=== PATIENT | male | born 1980 | race Caucasian/White ===

== ENCOUNTER 2016-12-27 13:48 | Emergency (ER) | payer MEDICAID ==
[2016-12-27 13:56] VITALS: RESP 16; TEMP 97.7
--- NOTE | 2016-12-27 14:44 | EDPHY ---
H & P Time Seen by Provider: 12/27/16 14:27 HPI/ROS: CHIEF COMPLAINT: Rectal bleeding for 1 year HISTORY OF PRESENT ILLNESS: This 36-year-old man describes that he "had 2 stents placed" in his "rectum in [place]" for surgery for diverticulitis approximately 8 years ago. Over the past year he has had intermittent red blood from the rectal area, last was yesterday. Symptoms are mild. Not associated with abdominal pain or bleeding anywhere else. No nausea vomiting or diarrhea. REVIEW OF SYSTEMS: Eye: no change in vision ENT: no sore throat Cardiac: no chest pain or syncope Pulmonary: no cough or SOB Abdomen: HPI Musculoskeletal: no back pain Skin: no rash Neuro: no headache Constitutional: no fever : no urinary symptoms A comprehensive 10 point review of systems is otherwise negative aside from elements mentioned in the history of present illness. PAST MEDICAL HISTORY: As in HPI. Also right shoulder surgery. Social history: Currently homeless General Appearance: Alert and conversant, cooperative. Eyes: No scleral icterus. ENT, Mouth: Normal mucous membranes. Respiratory: Normal respiratory effort, breath sounds equal, lungs are clear to auscultation. Cardiovascular: Regular rate and rhythm. Gastrointestinal: Abdomen is soft and non tender. Rectal exam shows would appear to be 2 sinus tracts lateral to the rectum. No hemorrhoids seen. Anoscopy is normal with brown stool sent to lab for Hemoccult. Neurological: Alert and oriented x3. Normally conversant. Face symmetric, normal movement and sensation in all extremities. Skin: Warm and dry, no rashes. Musculoskeletal: No peripheral edema and no joint swelling. Psychiatric: Not agitated. Emergency Department course/MDM: CBC and fecal occult blood. Surgical referral, CBC and hemoglobin and hematocrit are normal. Case management to facilitate surgical follow-up. I think it is unlikely that he has actively bleeding hemorrhoid, upper or lower GI bleed, rectal infection, colitis. Smoking Status: Unknown if ever smoked Constitutional: Initial Vital Signs Temperature (C) 36.5 C 12/27/16 13:52 Heart Rate 105 H 12/27/16 13:52 Respiratory Rate 16 12/27/16 13:52 Blood Pressure 131/90 H 12/27/16 13:52 O2 Sat (%) 98 12/27/16 13:52 O2 Delivery Mode Room Air Allergies/Adverse Reactions: No Known Allergies Allergy (Unverified 05/25/13 10:36) Home Medications: Medication Instructions Recorded Cephalexin [Keflex (RX)] 500 mg PO Q6H #28 cap 05/25/13 Miscellaneous Medical Supply [NO 1 ea MIS AD 05/25/13 HOME MEDS] SULFAMETHOXAZOLE/TRIMETHOPRIM 1 each PO BID #14 tab 05/25/13 [BACTRIM DS TABLET] Medical Decision Making - Data Points Laboratory Results: Laboratory Results 12/27/16 14:40 12/27/16 12/27/16 14:40 14:37 WBC 7.78 10^3/uL 10^3/uL (3.80-9.50) RBC 4.55 10^6/uL 10^6/uL (4.40-6.38) Hgb 15.1 g/dL g/dL (13.7-17.5) Hct 43.2 % % (40.0-51.0) MCV 94.9 fL fL (81.5-99.8) MCH 33.2 pg pg (27.9-34.1) MCHC 35.0 g/dL g/dL (32.4-36.7) RDW 12.2 % % (11.5-15.2) Plt Count 294 10^3/uL 10^3/uL (150-400) MPV 10.5 fL fL (8.7-11.7) Neut % (Auto) 65.3 % % (39.3-74.2) Lymph % (Auto) 25.6 % % (15.0-45.0) Terry % (Auto) 6.6 % % (4.5-13.0) Eos % (Auto) 1.9 % % (0.6-7.6) Baso % (Auto) 0.3 % % (0.3-1.7) Nucleat RBC Rel Count 0.0 % % (0.0-0.2) Absolute Neuts (auto) 5.09 10^3/uL 10^3/uL (1.70-6.50) Absolute Lymphs (auto) 1.99 10^3/uL 10^3/uL (1.00-3.00) Absolute Monos (auto) 0.51 10^3/uL 10^3/uL (0.30-0.80) Absolute Eos (auto) 0.15 10^3/uL 10^3/uL (0.03-0.40) Absolute Basos (auto) 0.02 10^3/uL 10^3/uL (0.02-0.10) Absolute Nucleated RBC 0.00 10^3/uL 10^3/uL (0-0.01) Immature Gran % 0.3 % % (0.0-1.1) Immature Gran # 0.02 10^3/uL 10^3/uL (0.00-0.10) Stool Occult Bld Scrn NEGATIVE (NEGATIVE) Departure - Departure Disposition: Home, Routine, Self-Care Clinical Impression: Rectal bleeding Condition: Good Instructions: Rectal Bleeding (ED) Additional Instructions: You have a follow-up appointment at [facility] tomorrow Saturday12/28/16 with a 10:45 a.m. check-in. [facility] address is [address] [place] [address] and their phone number is . You have a follow-up appointment with Dr. Franchesca Valdez on Saturday01/08/17 with a 12:45p.m. check-in time. Dr. Franchesca Valdez's office is located on [facility] but in the [facility] at [address] [place] [address], [address] Dr. Franchesca Valdez's office number is [phone]. Please call them if you need to cancel or reschedule this appointment. Referrals: Franchesca Valdez MD [Medical Doctor] - As per Instructions (Your referred to the surgeon for follow-up for your rectal issue.) [facility],. [Clinic] - As per Instructions
[2016-12-27 14:53] LABS: % IMMATURE GRANULYOCYTES 0.3 % (0.0-1.1); ABSOLUTE IMMATURE GRANULOCYTES 0.02 10^3/uL (0.00-0.10); ADD DIFF? NO; ADD MORPH? NO; ADD SCAN? NO; ATYPICAL LYMPHOCYTE FLAG 30 (0-99); FRAGMENT RBC FLAG 0 (0-99); HEMATOCRIT 43.2 % (40.0-51.0); HEMOGLOBIN 15.1 g/dL (13.7-17.5); LEFT SHIFT FLG 0 (0-99); LIPEMIA HEMOLYSIS FLAG 90 (0-99); MEAN CELL HEMOGLOBIN 33.2 pg (27.9-34.1); MEAN CELL VOLUME 94.9 fL (81.5-99.8); MEAN PLATELET VOLUME 10.5 fL (8.7-11.7); PLATELET CLUMPS FLAG 0 (0-99); PLATELET COUNT 294 10^3/uL (150-400); RED BLOOD CELL COUNT 4.55 10^6/uL (4.40-6.38); RED CELL DISTRIBUTION WIDTH 12.2 % (11.5-15.2)
[2016-12-27 15:33] VITALS: BP 128/84; PULSE 83; O2SAT 96
== END 2016-12-27 15:33 | disposition home or self-care (01) ==
DX: K62.5 Hemorrhage of anus and rectum (principal)